=== PATIENT | male | born 1960 | race Caucasian/White ===

== ENCOUNTER 2017-08-11 07:52 | Emergency (ER) | payer BC ==
[~2017-08-11] VITALS: Ht 182.9 cm; Wt 77.4 kg
[2017-08-11 07:53] VITALS: BP 129/86
[2017-08-11] MEDS ORDERED: ACETAMINOPHEN 325 MG TABLET PO ONE (10:30)
== END 2017-08-11 11:23 | disposition home or self-care (01) ==
LOC: ED 11:17
DX: M48.02 Spinal stenosis, cervical region (principal); M50.223 Other cervical disc displacement at C6-C7 level
CPT/HCPCS: 72141; 93005; 99284